=== PATIENT | male | born 1975 | race American Indian/Alaskan Native ===

== ENCOUNTER 2016-06-28 17:26 | Emergency (ER) | payer SELFPAY ==
[2016-06-28 17:46] VITALS: BP 141/79
[2016-06-28] MEDS ORDERED: TORADOL IM ONE (17:59)
--- NOTE | 2016-06-28 18:04 | Emergency Department Report ---
ED Extremity Problem HPI - General Chief complaint: Extremity Injury, Lower Stated complaint: LEFT FOOT SWOLLEN Time Seen by Provider: 06/28/16 17:58 Source: patient Mode of arrival: Wheelchair Limitations: No Limitations - History of Present Illness Initial comments: 41-year-old -[place] male comes in for complaint of left foot pain for 2 days with a history of gout. Patient reports the pain is so severe that even placed in a bed sheet over makes it hurt. Patient does admit to having a past medical history of gout but has not been on any medication for prevention. He also reports that he had been drinking red wine as well as had hamburgers on a grill yesterday. Patient has no other concerns at this time has no known drug allergies and takes no medications. MD Complaint: extremity pain, extremity swelling, joint paint -: days(s) (2) Location: left - Related Data Previous Rx's Medication Instructions Recorded Last Taken Type HYDROcodone/APAP 10-325 [[place] 1 each PO Q6HR PRN #20 tablet 10/15/14 Unknown Rx 10/325] Ibuprofen [Motrin 800 MG tab] 800 mg PO Q8HR #90 tablet 10/15/14 Unknown Rx Indomethacin [Indocin] 25 mg PO TID #30 capsule 06/28/16 Unknown Rx Prednisone [predniSONE 5 mg (6-Day 5 mg PO .TAPER #1 tab.ds.pk 06/28/16 Unknown Rx Pack, 21 Tabs)] Allergies Allergy/AdvReac Type Severity Reaction Status Date / Time No Known Allergies Allergy Verified 10/15/14 07:55 ED Review of Systems ROS: Stated complaint: LEFT FOOT SWOLLEN Other details as noted in HPI ED Past Medical Hx - Past Medical History Previous Medical History?: Yes Hx Hypertension: Yes (patient has never been on any medication.) Additional medical history: gout - Surgical History Past Surgical History?: No - Social History Smoking Status: Current Every Day Smoker Substance Use Type: Alcohol - Medications Home Medications: Home Medications Medication Instructions Recorded Confirmed Last Taken Type HYDROcodone/APAP 10-325 [[place] 1 each PO Q6HR PRN #20 tablet 10/15/14 Unknown Rx 10/325] Ibuprofen [Motrin 800 MG tab] 800 mg PO Q8HR #90 tablet 10/15/14 Unknown Rx Indomethacin [Indocin] 25 mg PO TID #30 capsule 06/28/16 Unknown Rx Prednisone [predniSONE 5 mg (6-Day 5 mg PO .TAPER #1 tab.ds.pk 06/28/16 Unknown Rx Pack, 21 Tabs)] ED Physical Exam - General Limitations: No Limitations General appearance: alert, in no apparent distress - Head Head exam: Present: atraumatic, normocephalic - ENT ENT exam: Present: mucous membranes moist - Expanded Lower Extremity Exam Left Ankle exam: Present: tenderness, swelling Foot/Toe exam: Present: normal inspection, tenderness, swelling Neuro vascular tendon exam: Present: no vascular compromise Gait: Positive: antalgic ED Course Vital Signs 06/28/16 17:43 Temperature 98.5 F Pulse Rate 67 Respiratory 20 Rate Blood Pressure 141/79 O2 Sat by Pulse 99 Oximetry ED Medical Decision Making - Medical Decision Making Patient has been evaluated by this provider in fast track. Discussed patient is is most likely a gout flareup discussed with patient that I'll give him a Toradol injection for pain management and discharge him on indomethacin 50 mg 1 tablet by mouth 3 times a day when necessary for pain. Patient verbalized understanding. Critical care attestation.: If time is entered above; I have spent that time in minutes in the direct care of this critically ill patient, excluding procedure time. ED Disposition Clinical Impression: Gout attack Disposition: DISCHARGED TO HOME OR SELFCARE Is pt being admited?: No Does the pt Need Aspirin: No Condition: Stable Instructions: Acute Gouty Arthritis (ED) Additional Instructions: Please take gout medication as prescribed. Please stay away from winds cheese red meat organ meat. Follow up with her primary care provider for further evaluation. Prescriptions: Indomethacin [Indocin] 25 mg PO TID #30 capsule Prednisone [predniSONE 5 mg (6-Day Pack, 21 Tabs)] 5 mg PO .TAPER #1 tab.ds.pk Referrals: PRIMARY CARE, [Primary Care Provider] - 3-5 Days [facility] [Provider Group] - 3-5 Days [facility] [Provider Group] - 3-5 Days Forms: Work/School Release Form
== END 2016-06-28 19:31 | disposition home or self-care (01) ==
LOC: EDBD 17:26 → ED 17:26
DX: M10.9 Gout, unspecified (principal); F17.200 Nicotine dependence, unspecified, uncomplicated
CPT/HCPCS: 96372; 99281; J1885; J2920